=== PATIENT | female | born 1970 | race Caucasian/White ===

== ENCOUNTER 2021-11-27 12:59 | Emergency (ER) | payer OTHER, BC, SELFPAY ==
--- NOTE | ~2021-11-27 | XR_ITS ---
EXAMINATION: XR shoulder RT min 2V, XR hand RT min 3V, XR humerus RT, XR forearm RT 2V DATE: 11/27/2021 13:25 INDICATION: Right shoulder and upper extremity pain post fall on ice TECHNIQUE: 1. AP internally and externally rotated, AP oblique externally rotated and transscapular Y views of t he right shoulder were obtained. 2. Internal and axillary rotated views of the right humerus were obtained. 3. AP and lateral views of the right forearm were obtained. 4. Dorsal palmar, oblique and lateral views of the right hand were obtained. COMPARISON: None FINDINGS: Normal alignment throughout the right upper extremity from the shoulder through the hand. No fractur e. Small globular foci of calcific density at the posterior margin of the right greater tuberosity co nsistent with calcific tendinitis of the distal right infraspinatus and/or teres minor tendons.Modera te right acromioclavicular osteoarthritis. Joint space at the right glenohumeral joint, elbow and in the right hand and wrist are relatively preserved. Mild soft tissue swelling in the hand dorsal to th e head of the third metacarpal. Soft tissues are otherwise unremarkable. Right lung is clear. IMPRESSION: 1. No acute osseous abnormality right upper extremity from the shoulder through the hand. 2. Small amount of right rotator cuff calcific tendinitis involving the infraspinatus and/or teres mi nor tendons. 3. Moderate right acromioclavicular osteoarthritis. Reviewed, dictated and finalized at location A. [facility] [employer]SULT[facility] IMPRESSION: 1. No acute osseous abnormality right upper extremity from the shoulder through the hand. 2. Small amount of right rotator cuff calcific tendinitis involving the infrasp inatus and/or teres minor tendons. 3. Moderate right acromioclavicular osteoarthritis. IMPRESSION: 1. No acute osseous abnormality right upper extremity from the shoulder through the hand. 2. Small amount of right rotator cuff calcific tendinitis involving the infrasp inatus and/or teres minor tendons. 3. Moderate right acromioclavicular osteoarthritis. IMPRESSION: 1. No acute osseous abnormality right upper extremity from the shoulder through the hand. 2. Small amount of right rotator cuff calcific tendinitis involving the infrasp inatus and/or teres minor tendons. 3. Moderate right acromioclavicular osteoarthritis.
[2021-11-27 13:08] VITALS: BP 116/97; PULSE 96; RESP 16; TEMP 35.8; O2SAT 98
--- NOTE | 2021-11-27 13:38 | ED.UPPEXIN ---
HPI - Extremity Injury (Upper) General Chief Complaint: Extremity Injury, Upper Stated Complaint: FALL/INJURED R ARM Time Seen by Provider: 11/27/21 13:25 Source: patient and RN notes reviewed Mode of arrival: ambulatory Limitations: no limitations History of Present Illness HPI narrative: Patient presents today complaint of right arm pain after falling on some ice 30 minutes prior to arrival. States her entire arm and hand hurts, but it is worse in her forearm. She does report some tingling to the hand and fingers. Currently rates her pain 10/10, which increases with movement. She has tried no [id number] interventions prior to arrival. MD complaint: injury to: left and arm Related Data Home Medications Medication Instructions Recorded Confirmed glimepiride 4 mg tablet 2 mg PO QAM tablet 11/18/19 hydrochlorothiazide 25 mg tablet 25 mg PO DAILY 11/18/19 losartan 25 mg tablet 25 mg PO DAILY 11/18/19 metformin 1,000 mg tablet 1,000 mg PO BID 11/18/19 sertraline 100 mg tablet 100 mg PO DAILY 11/18/19 empagliflozin [Jardiance] mg 11/27/21 escitalopram oxalate mg 11/27/21 fenofibrate nanocrystallized mg PO 11/27/21 simvastatin mg 11/27/21 Allergies Allergy/AdvReac Type Severity Reaction Status Date / Time levofloxacin [From Levaquin] Allergy Unknown Verified 11/27/21 13:11 prochlorperazine Allergy Unknown Verified 11/27/21 13:11 [From Compazine] Sulfa (Sulfonamide Allergy Unknown Verified 11/27/21 13:11 Antibiotics) Review of Systems Review of Systems: CONSTITUTIONAL: Denies body aches, fever, chills, or sweats. EYES: Denies visual changes, redness, or discharge. ENT: Denies rhinorrhea, congestion, sore throat, or otalgia. CARDIOVASCULAR: Denies chest pain, palpitations, or edema. RESPIRATORY: Denies cough or dyspnea. GASTROINTESTINAL: Denies abdominal pain, nausea, vomiting, or diarrhea. GENITOURINARY: Denies dysuria or hematuria. SKIN: Denies rash, itching, or wounds. MUSCULOSKELETAL: Denies back pain, or myalgia.+ Right arm pain NEUROLOGIC: Denies headache, numbness, or weakness.+ Tingling in the right hand and fingers PSYCH: Denies depression or anxiety. PMFSH Past Medical History Medical History Anxiety Cough due to VIMAL inhibitor Essential hypertension Menometrorrhagia Moderate episode of recurrent major depressive disorder Type 2 diabetes mellitus without complication, without long-term current use of insulin Family History Family History Other Family history of coronary artery disease Social History Social History Smoking status: Never smoker Second hand tobacco smoke exposure: No Alcohol intake: never Comments At time of signature, I have reviewed and agree with nursing past medical, surgical, social and family history unless otherwise noted. Please see nursing chart for further information. There is no relevant family history pertinent to the presenting complaint Exam Narrative: GENERAL: Well-appearing, well-nourished, and in no acute distress. Patient is holding her arm in a foot position at her side. HEAD: Normocephalic, atraumatic. EYES: EOMI. No redness or drainage. Conjunctivae normal. ENT: Mucous membranes pink and moist. NECK: Normal AROM. CHEST: No respiratory distress. EXTREMITIES: Right arm: Patient is nontender throughout the shoulder, humerus, elbow, forearm, hands and fingers. She does have some mild pulling pain in the forearm with pronation and supination of the wrist. Full range of motion of the shoulder, elbow, and fingers with no increased pain. Distal sensation intact. Capillary refill normal. Left arm normal. SKIN: Warm, dry, no rash. Capillary refill normal. Normal skin turgor. NEURO: No focal deficits. Alert and oriented x3. Gait steady. PSYCH: Norm
== END 2021-11-27 13:51 | disposition home or self-care (01) ==
PROVIDERS: Emergency Provider Nurse Practitioner
DX: S46.911A Strain of unspecified muscle, fascia and tendon at shoulder and upper arm level, right arm, initial encounter (principal); W00.9XXA Unspecified fall due to ice and snow, initial encounter; I10 Essential (primary) hypertension; E11.9 Type 2 diabetes mellitus without complications; Z79.4 Long term (current) use of insulin; F33.9 Major depressive disorder, recurrent, unspecified
CPT/HCPCS: 73030; 73060; 73090; 73130; 99214; G0463

== ENCOUNTER 2024-05-16 19:39 | Emergency (ER) | payer BC, SELFPAY ==
[2024-05-16 19:46] VITALS: BP 152/83; PULSE 97; RESP 16; TEMP 36.3; O2SAT 99
--- NOTE | 2024-05-16 20:04 | ED.UPPEXIN ---
HPI - Extremity Injury (Upper) General Chief Complaint: Extremity Injury, Upper Stated Complaint: Right Shoulder Pain Time Seen by Provider: 05/16/24 20:05 History of Present Illness HPI narrative: Patient presents with complaints of right shoulder pain that radiates down the right arm. She reports pain began upon awakening, get worse throughout the day. She now reports that pain has become nearly unbearable. She has not taken any [id number] medications or used any ice. She reports pain is worse with range of motion. She denies all injury or trauma. She denies any numbness or tingling. She voices no other concerns or complaints today. Related Data Home Medications Medication Instructions Recorded Confirmed metformin 1,000 mg tablet 1,000 mg PO BID 11/18/19 05/16/24 empagliflozin 10 mg tablet 10 mg PO DAILY 11/27/21 02/10/22 (Jardiance) escitalopram oxalate 10 mg tablet 10 mg PO DAILY 11/27/21 02/10/22 simvastatin 20 mg tablet 20 mg PO DAILY 11/27/21 02/10/22 metoprolol tartrate 25 mg tablet 12.5 mg PO BID 02/10/22 05/16/24 semaglutide 1 mg/dose (4 mg/3 mL) 1 mg subcut WEEKLY 02/10/22 05/16/24 subcutaneous pen injector (Ozempic) Allergies Allergy/AdvReac Type Severity Reaction Status Date / Time levofloxacin [From Levaquin] Allergy Unknown Verified 05/16/24 19:59 prochlorperazine Allergy Unknown Verified 05/16/24 19:59 [From Compazine] Sulfa (Sulfonamide Allergy Unknown Verified 05/16/24 19:59 Antibiotics) Review of Systems Review of Systems: All systems reviewed & are unremarkable except as noted in HPI and below Constitutional: Constitutional: Reports no additional constitutional complaints ENT: Reports system reviewed and no additional complaints, except as documented Cardiovascular: Cardiovascular: Reports no additional cardiovascular complaints Respiratory: Respiratory: Reports no additional respiratory complaints Gastrointestinal: Gastrointestinal: Reports no additional gastrointestinal complaints Musculoskeletal: Musculoskeletal: Reports as per HPI Neurologic: Denies Sensory deficit (Neuro), Denies tingling and Denies paresthesias [facility] Past Medical History Medical History Anxiety Cough due to VIMAL inhibitor Diabetes Essential hypertension Hyperlipidemia Menometrorrhagia Moderate episode of recurrent major depressive disorder Sleep apnea Type 2 diabetes mellitus without complication, without long-term current use of insulin Surgical History Surgical History History of delivery 05/03/1996 07/28/2001 History of cholecystectomy History of tonsillectomy Family History Family History Father Cancer Hypertension Heart disease Mother Diabetes mellitus Manic depressive disorder Other Family history of coronary artery disease Social History Social History Smoking status: Never smoker Second hand tobacco smoke exposure: No Alcohol intake: never Exam Const: General: cooperative, no acute distress, alert and awake Orientation/consciousness: oriented to person, oriented to place and oriented to time HENMT: Head: normal to inspection Resp: Effort & Inspection: normal respiratory effort and able to speak in complete sentences Auscultation: clear to auscultation bilaterally, no crackles, no rales, no rhonchi and no wheezes Cardio: Palpation: normal PMI Rate: regular rate Rhythm: regular rhythm Heart sounds: S1 normal heart sound present and S2 normal heart sound present Neuro: General: oriented to person, oriented to place and oriented to time Cranial nerves: Yes CN's II-XII intact bilaterally Extrem: Right upper extremity: normal capillary refill and shoulder/upper arm tenderness of the A-C joint and abnormal ROM pain
== END 2024-05-16 20:15 | disposition home or self-care (01) ==
PROVIDERS: Emergency Provider Nurse Practitioner Family; PCP Physician Assistant
DX: M77.8 Other enthesopathies, not elsewhere classified (principal); E11.9 Type 2 diabetes mellitus without complications; I10 Essential (primary) hypertension; E78.5 Hyperlipidemia, unspecified; Z79.84 Long term (current) use of oral hypoglycemic drugs; F41.9 Anxiety disorder, unspecified; F33.9 Major depressive disorder, recurrent, unspecified
CPT/HCPCS: 99213; G0463